=== PATIENT | male | born 1985 | race Caucasian/White ===

== ENCOUNTER 2020-02-21 13:15 | Emergency (ER) | payer OTHER, SELFPAY ==
--- NOTE | ~2020-02-21 | XR_ITS ---
EXAMINATION: XR chest 2V EXAM DATE: 02/21/2020 13:34 INDICATION: Cough and shortness of breath. TECHNIQUE: Frontal and lateral projections of the chest obtained and reviewed. There is no prior yeni dy for comparison. FINDINGS: There is no focal air space disease. There are no pleural effusions. The cardiothymic nikki houette is normal. There is no pneumothorax. There are no osseous or soft tissue abnormalities in t his skeletally immature patient. Lungs have normal volume. IMPRESSION: Normal chest x-ray exam. Reviewed, dictated and finalized at location A. IMPRESSION: Normal chest x-ray exam.
[2020-02-21 13:23] VITALS: BP 130/83; PULSE 82; RESP 20; TEMP 36.6; O2SAT 98
--- NOTE | 2020-02-21 13:34 | ED.URI ---
HPI - URI/Sore Throat General Chief Complaint: Upper Respiratory Infection Stated Complaint: Chest pain/shortness of breath Source: patient and RN notes reviewed Mode of arrival: ambulatory Limitations: no limitations History of Present Illness HPI Narrative: The patient, a non-smoker/nondrinker maintenance repairer, presents with right chest pains. Patient states he has not worked since the end of the first week of the month, having been sent home at the time with a measured fever of 100. His child was also unwell, and he had a negative COVID test then . Since then he has had no fever, cough, increased shortness of breath, travel history, calf pain/edema, rash, sneezing/wheezing, vomiting/dehydration-but he does report chills and loose stools. Upon calling work he was referred here for his mention of chest pains. Chest pain has been constant throughout the month, located right-sided, punching , unrelated to exertion or activity and is intermittent lasting at most minutes at a time. The patient agrees, in light of health emergency- in my medical judgement, only a personal chat was preferable to fully undress & examine the patient exhibiting potential COVID symptoms, in order to limit risk of infection. Related Data Allergies Allergy/AdvReac Type Severity Reaction Status Date / Time No Known Allergies Allergy Verified 02/21/20 13:23 Review of Systems Review of Systems: Narrative: General/Constitutional: No weight loss,fever Eyes: N0: Redness,discharge Ears/Nose/Throat: No: Epistaxis,ear discharge Respiratory: Denies: Hemoptysis Gastrointestinal: No Vomiting, Bleeding-rectal Skin: No Lumps, eruption Neurologic: No Focal Weakness,Sz Hematologic: Denies: Petechiae/Purpura Psychiatric: No: Suicida ideationl All Other Systems: Reviewed and Negative [facility] Social History Social History (Updated 02/21/20 @ 14:29 by Pily Hope [facility]) Smoking status: Never smoker Second hand tobacco smoke exposure: No Alcohol intake: never Substance use: never Substance use type: does not use Living arrangements: with family Occupation/Education: occupation Gender identity (if verbalized by the patient): Male Comments At time of signature, agree with nursing past medical, surgical, social and family history. There is no relevant family history pertinent to the presenting complaint Exam Narrative: Exam Narrative: General Appearance: Well appearing, No distress EYE: PERRLA, Conjunctiva clear Ears: External ear normal Nose: Normal nose Mouth/Throat: Normal appearing, Normal lips Neck: Supple Respiratory: Airway patent, No respiratory distress Cardiovascular: RRR Skin: Warm, Dry Neurological: A&O x3, CN II-X intact Psychiatric: Normal mood, Normal affect Course Vital Signs Vital signs: Vital Signs Temperature 98 F 02/21/20 13:23 Pulse Rate 82 02/21/20 13:23 Respiratory Rate 20 02/21/20 13:23 Blood Pressure 130/83 02/21/20 13:23 Pulse Oximetry 98 02/21/20 13:23 Temperature 98 F 02/21/20 13:23 Pulse Rate 82 02/21/20 13:23 Respiratory Rate 20 02/21/20 13:23 Blood Pressure 130/83 02/21/20 13:23 Pulse Oximetry 98 02/21/20 13:23 Discharge Plan Discharge Clinical Impression: Chest pain, atypical Patient Disposition: Home, Self-Care Condition: Stable Additional Instructions: CDC's Symptom-based strategy for determining when one can return to work. Personnel with mild to moderate illness [who are not severely immunocompromised]: At least 10 days have passed since symptoms first appeared and At least 72 hours have passed since last fever without the use of fever-reducing medications and Symptoms (e.g., cough, shortness of breath) have improved Prescriptions: New albuterol sulfate [Ventolin HFA] 90 mcg/actuation HFA aerosol inhaler 2 puff INHALATION QID PRN (Reason: shortness of breath or wheezing) Qty: 1 RF: 1 Interventions: Discharge Dispos
== END 2020-02-21 14:13 | disposition home or self-care (01) ==
PROVIDERS: Emergency Provider Emergency Medicine
DX: R07.89 Other chest pain (principal)
CPT/HCPCS: 71046; 99203; G0463

== ENCOUNTER 2020-07-04 10:11 | Emergency (ER) | payer OTHER, SELFPAY ==
[2020-07-04 10:15] VITALS: BP 126/83; PULSE 88; RESP 12; TEMP 36.5; O2SAT 99
--- NOTE | 2020-07-04 10:15 | ED.ALLEREA ---
HPI - Allergic Reaction General Chief complaint: Allergic Reaction Stated complaint: possible allergic reaction Time Seen by Provider: 07/04/20 10:15 Source: patient Mode of arrival: ambulatory Limitations: no limitations History of Present Illness HPI narrative: Saw Hope is a 34 tear old male with asthma who ate something at [employer] and broke out in rash- when arrived at work his temp was slightly elevated (after drinking coffee). Had red mild burning rash on arms around neck top of chest . took antihistamine, seen at employee health there , but job told him he had to be seen before come back to work. Related Data Home Medications Medication Instructions Recorded Confirmed No Home Medications 07/04/20 07/04/20 Allergies Allergy/AdvReac Type Severity Reaction Status Date / Time No Known Allergies Allergy Verified 07/04/20 10:19 Review of Systems Review of Systems: Narrative: CONSTITUTIONAL: Denies fever, chills, sweats. No fever EYES: Denies visual changes, redness, discharge. ENT: Denies rhinorrhea, congestion, sore throat, otalgia. CARDIOVASCULAR: Denies chest pain, palpitations, edema. RESPIRATORY: Denies dyspnea, wheezing, cough GASTROINTESTINAL: Denies abdominal pain, nausea, vomiting, diarrhea. GENITOURINARY: Denies dysuria, hematuria, abnormal discharge SKIN: Head rash lower or itching. NEUROLOGIC: Denies numbness, or focal weakness. PSYCHIATRIC: Denies anxiety or depression. [facility] Past Medical History Medical History (Updated 07/04/20 @ 10:31 by Regine Osorio CNP) No acute medical problems Family History Family History Other No acute medical problems Social History Social History Smoking status: Never smoker Second hand tobacco smoke exposure: No Alcohol intake: never Substance use: never Substance use type: does not use Gender identity (if verbalized by the patient): Male Comments At time of signature, I agree with nursing past medical, surgical, social and family history. There is no relevant family history pertinent to the presenting complaint. Exam Narrative: Exam Narrative: GENERAL: This is a well-nourished, well-developed patient, in no distress. HEAD: normocephalic, atraumatic. EYES: Sclera clear/white. Vision is grossly intact. EARS: External ears normal, auditory canals clear and without drainage, TMs normal without perforation. Hearing grossly intact. NOSE: External nose normal without nasal discharge, nares without redness, no rhinorrhea. THROAT: Mucous membranes moist, posterior pharynx pink NECK: Neck supple, non-tender CARDIOVASCULAR: Regular rate and rhythm without murmurs, gallops, or rubs. RESPIRATORY: Clear to auscultation. Breath sounds equal bilaterally. No wheezes, rales, or rhonchi. GASTROINTESTINAL: Abdomen soft, non-tender, SKIN: warm, intact with no suspicious lesions or rash, good texture and turgor. Airways clear no edema NEURO: awake, alert, and oriented to person, place and time. There were no obvious focal neurologic abnormalities. Steady gait EXTREMITIES: Normal range of motion. BACK: Nontender without deformity Course Course Emergency Course: Patient had read reaction this morning after eating [employer] and drinking hot coughing away to work. Patient took Zyrtec and the redness on his skin has disappeared he has no respiratory difficulties and no telltale signs of illness Given a return to work note Vital Signs Vital signs: Vital Signs Temperature 97.7 F 07/04/20 10:15 Pulse Rate 88 07/04/20 10:15 Respiratory Rate 12 07/04/20 10:15 Blood Pressure 126/83 07/04/20 10:15 Pulse Oximetry 99 07/04/20 10:15 Temperature 97.7 F 07/04/20 10:19 Pulse Rate 88 07/04/20 10:19 Respiratory Rate 12 07/04/20 10:19 Blood Pressure 126/83 07/04/20 10:19 Pulse Oximetry 99 07/04/20 10:19 M
[2020-07-04 10:19] VITALS: BP 126/83; PULSE 88; RESP 12; TEMP 36.5; O2SAT 99
== END 2020-07-04 10:35 | disposition home or self-care (01) ==
PROVIDERS: Emergency Provider Nurse Practitioner
DX: R21 Rash and other nonspecific skin eruption (principal); T78.40XA Allergy, unspecified, initial encounter
CPT/HCPCS: 99211; G0463

== ENCOUNTER → 2021-08-19 02:47 | Outpatient (CLI) | payer OTHER, SELFPAY ==
[2021-08-19 19:08] LABS: SARS-CoV-2 RNA PCR Negative
== END ==
PROVIDERS: PCP Family Medicine; Visit Provider Family Medicine
DX: R68.89 Other general symptoms and signs (principal); Z20.822 Contact with and (suspected) exposure to COVID-19
CPT/HCPCS: C9803; U0003; U0005

== ENCOUNTER 2022-01-02 14:04 | Emergency (ER) | payer OTHER, SELFPAY ==
[2022-01-02 14:15] VITALS: BP 140/87; PULSE 79; RESP 14; TEMP 36.6; O2SAT 97
[2022-01-02] MEDS: IBUPROFEN 600 MG TABLET PO (14:50)
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
== END 2022-01-02 16:29 | disposition home or self-care (01) ==
PROVIDERS: Emergency Provider Emergency Medicine; PCP Family Medicine
DX: S46.811A Strain of other muscles, fascia and tendons at shoulder and upper arm level, right arm, initial encounter (principal); S46.812A Strain of other muscles, fascia and tendons at shoulder and upper arm level, left arm, initial encounter; V43.62XA Car passenger injured in collision with other type car in traffic accident, initial encounter
CPT/HCPCS: 99283; A9270

== ENCOUNTER 2022-09-11 09:37 | Emergency (ER) | payer OTHER, SELFPAY ==
[2022-09-11 09:45] VITALS: BP 124/81; PULSE 96; RESP 16; TEMP 36.4; O2SAT 97
--- NOTE | 2022-09-11 09:55 | ED.GENADULT ---
HPI - General Adult General Chief complaint: Shortness of Breath/Dyspnea Stated complaint: SOB/COUGH Time Seen by Provider: 09/11/22 09:55 Source: patient, RN notes reviewed and old records reviewed Mode of arrival: ambulatory Limitations: no limitations History of Present Illness HPI narrative: 36 year old male with complaints of having a cold about a week and a half ago with complaints of harsh cough for the past 4-5 days with shortness of breath and wheezing. He reports that he carried a small basket of laundry up the basement steps this morning and felt like he had run 5 laps [address] and coughed so hard and had increased shortness of breath that he decided to come to clinic to get checked out. Patient states that he has not taken any OTC medications for his symptoms. Patient states that he has a slight headache and he has some head congestion, denies any ear pain or any sore throat. MD complaint: cough with some shortness of breath Onset (ago): day(s) (4-5) Treatments prior to arrival: none Related Data Allergies Allergy/AdvReac Type Severity Reaction Status Date / Time No Known Allergies Allergy Verified 09/11/22 09:44 Review of Systems Review of Systems: CONSTITUTIONAL: Denies fever, chills, or sweats. EYES: Denies visual changes, redness, or discharge. ENT: Denies rhinorrhea, states head congestion,no sore throat, or otalgia. CARDIOVASCULAR: Denies chest pain, palpitations, or edema, states some tightness in chest with coughing fits. RESPIRATORY: Reports cough, wheezing, and dyspnea. GASTROINTESTINAL: Denies abdominal pain, nausea, vomiting, or diarrhea. GENITOURINARY: Denies dysuria or hematuria. SKIN: Denies rash or itching. MUSCULOSKELETAL: Denies back pain, joint pain, or myalgia. NEUROLOGIC: Slight headache,no numbness, or weakness. PSYCHIATRIC: Denies anxiety or depression. All systems reviewed & are unremarkable except as noted in HPI and below PMFSH Past Medical History Medical History Anxiety disorder, unspecified Biceps tendonitis on right BMI 26.0-26.9,adult BMI 27.0-27.9,adult Epistaxis Exposure to COVID-19 virus Major depression, chronic No acute medical problems Surgical History Surgical History Hx of myringotomy Family History Family History Father No problems noted. Mother No problems noted. Sibling No problems noted. Other No acute medical problems Social History Social History Smoking status: Never smoker Second hand tobacco smoke exposure: Yes Alcohol intake: current Substance use: never Substance use type: does not use Living arrangements: with family Occupation/Education: occupation Additional occupation/education comments: [employer]. Gender identity (if verbalized by the patient): Male Comments At time of signature, agree with nursing past medical, surgical, social and family history. There is no relevant family history pertinent to the presenting complaint Exam Narrative: GENERAL: Well-appearing, well-nourished, and in no acute distress. HEAD: Normocephalic, atraumatic. EYES: PERRLA and EOMI. ENT: Nares clear, no rhinorrhea or epistaxis. Mucous membranes moist.TM's normal with good light reflex, throat NECK: Supple,.no lymphadenopathy CHEST: inspiratory and expiratory scattered wheezing on auscultation. No respiratory distress.Dyspnea with exertion SAO2 97% on room air. HEART: Regular rate and rhythm. No murmur heard. Normal peripheral pulses. ABDOMEN: Soft, nontender, nondistended, normal active bowel sounds. EXTREMITIES: Normal range of motion. No edema. SKIN: Warm, dry, no rash. NEURO: No focal deficits. Alert and oriented x3. Course Course Emergency Course: Patient is aware of butch
[2022-09-11] MEDS: ALBUTEROL SULFATE NEB 2.5 MG/3 ML INH INHALATION (10:09)
[2022-09-11] MEDS: IPRATROPIUM BR 0.02% INH SOLN 0.5 MG/2.5 ML VIAL INHALATION (10:09)
== END 2022-09-11 10:44 | disposition home or self-care (01) ==
PROVIDERS: Emergency Provider Registered Nurse
DX: J20.9 Acute bronchitis, unspecified (principal)
CPT/HCPCS: 94640; 99213; G0463

== ENCOUNTER 2024-03-24 08:27 | Emergency (ER) | payer OTHER, SELFPAY ==
--- NOTE | ~2024-03-24 | XR_ITS ---
XR hand RT min 3V 03/24/2024 09:04 INDICATION: Status post recent fall. Right hand pain. PROCEDURE: 3 views right hand COMPARISON: 09/11/2016 FINDINGS: Fracture, dislocation or subluxation is not identified. The soft tissues appear within norm al limits. No foreign bodies are identified. IMPRESSION: 1: NO ACUTE BONE OR JOINT ABNORMALITY IDENTIFIED. Reviewed, dictated and finalized at location B.
--- NOTE | 2024-03-24 08:44 | ED.UPPEXIN ---
HPI - Extremity Injury (Upper) General Chief Complaint: Extremity Injury, Upper Stated Complaint: RT Hand Pain Time Seen by Provider: 03/24/24 09:14 Source: patient and RN notes reviewed Mode of arrival: ambulatory Limitations: no limitations History of Present Illness HPI narrative: 38-year-old male presents concern for right hand pain. Reports 6 days ago he fell in the garage and struck his hand on a wooden banister. He reports pain over the base of the 3rd digit, reports swelling. Reports it hurts worse to move. MD complaint: injury to: right and hand Related Data Home Medications Medication Instructions Recorded Confirmed No Home Medications 03/24/24 03/24/24 Allergies Allergy/AdvReac Type Severity Reaction Status Date / Time No Known Allergies Allergy Verified 08/05/23 09:38 Review of Systems Review of Systems: CONSTITUTIONAL: Denies malaise, chills, sweats, or fever. SKIN: Denies rash or itching, open skin, laceration, abrasion, redness, warmth MUSCULOSKELETAL: Reports right hand pain and swelling NEUROLOGIC: Denies numbness, weakness All systems reviewed & are unremarkable except as noted in HPI and below PMFSH Past Medical History Medical History Anxiety disorder, unspecified Biceps tendonitis on right BMI 26.0-26.9,adult BMI 27.0-27.9,adult Epistaxis Exposure to COVID-19 virus Major depression, chronic No acute medical problems Surgical History Surgical History Hx of myringotomy Family History Family History Father No problems noted. Mother No problems noted. Sibling No problems noted. Other No acute medical problems Social History Social History Smoking status: Never smoker Second hand tobacco smoke exposure: Yes Alcohol intake: current Substance use: never Substance use type: does not use Living arrangements: with family Occupation/Education: occupation Additional occupation/education comments: [employer]. Gender identity (if verbalized by the patient): Male Comments At time of signature, agree with nursing past medical, surgical, social and family history. There is no relevant family history pertinent to the presenting complaint Exam Narrative: GENERAL: Well-appearing, well-nourished, and in no acute distress. HEAD: Normocephalic EYES: PERRLA, conjunctivae clear NECK: Supple. CHEST: Speaks in full sentences. No respiratory distress. HEART: Regular rate and rhythm. Normal and equal peripheral pulses. EXTREMITIES: Right hand and digits of hand have normal strength and sensation. 5/5 strength with digit flexion, extension. Range of motion normal. No clubbing, cyanosis. Edema in tenderness noted at the PIP joint of the 3rd digit. Skin intact. Normal digital cascade with flexion of fingers, median, ulnar and radial nerve intact. Normal sensation of each side of finger. No scissoring. Normal thumb opposition. Good capillary refill and radial pulse. Distal capillary refill less than 3 seconds. Patient is right/left hand dominant SKIN: Warn, dry, intact, pink. No rash NEURO: Alert and oriented x3. PSYCH: Normal mood and affect Course Course Emergency Course: Patient is aware of diagnosis, understands and agrees to treatment plan. Anticipatory guidance given. Patient agrees to follow-up as directed and is aware of reasons to seek care at the emergency department. Portions of this record may have been created with voice recognition software Level of Care: Express Care Visit Vital Signs Vital signs: Vital Signs Temperature 97.4 F L 03/24/24 08:51 Pulse Rate 77 03/24/24 08:51 Respiratory Rate 16 03/24/24 08:51 Blood Pressure 126/85 03/24/24 08:51 Pulse Oximetry 99 03/24/24
[2024-03-24 08:51] VITALS: BP 126/85; PULSE 77; RESP 16; TEMP 36.3; O2SAT 99
== END 2024-03-24 09:47 | disposition home or self-care (01) ==
PROVIDERS: Emergency Provider Nurse Practitioner; PCP Family Medicine
DX: S69.91XA Unspecified injury of right wrist, hand and finger(s), initial encounter (principal); W19.XXXA Unspecified fall, initial encounter
CPT/HCPCS: 29130; 73130; 99213; G0463

== ENCOUNTER 2025-02-09 08:10 | Outpatient (CLI) | payer OTHER, SELFPAY ==
--- NOTE | ~2025-02-09 | CT_ITS ---
Non-contrast CT scan of the Abdomen and Pelvis Clinical indication: Right varicocele Technique: 2.5 mm axial scans were obtained through the abdomen and pelvis without intravenous or or al contrast. Dose reduction technique was used on this scan by utilizing automated exposure control a nd iterative reconstruction technique. The dose-length product (DLP) was 754.46 mGy-cm. Findings: Images through the lung bases reveal no abnormalities. There is no evidence of renal or ureteral calculi. The kidneys and the ureters are nondilated. The liver, spleen, pancreas, gallbladder, and adrenals appear normal. There is no aortic aneurysm. There is no evidence of bowel obstruction. Images through the pelvis were performed. There is no evidence of ascites or lymphadenopathy. Urinary bladder unremarkable. No pelvic mass seen. Impression: No significant abnormality seen. Reviewed, dictated and finalized at [facility]. Impression: No significant abnormality seen.
== END 2025-02-09 08:11 | disposition home or self-care (01) ==
PROVIDERS: PCP Family Medicine; Visit Provider Urology
DX: I86.1 Scrotal varices (principal)
CPT/HCPCS: 74176

== ENCOUNTER 2025-04-02 08:37 | Outpatient (CLI) | payer OTHER, SELFPAY ==
--- NOTE | ~2025-04-02 | XR_ITS ---
Examination: XR chest 2V Clinical History: wheezing/cough for 4+ weeks Comparison: 02/21/2020 Technique: PA and Lateral Findings: Cardiomediastinal silhouette normal size and configuration. Lungs clear. No acute bony abnormality. IMPRESSION: 1. No acute cardiopulmonary findings. Reviewed, dictated and finalized at location R.
== END 2025-04-02 08:38 | disposition home or self-care (01) ==
LOC: MICIMG 08:39
PROVIDERS: PCP Family Medicine
DX: R05.9 Cough, unspecified (principal)
CPT/HCPCS: 71046